=== PATIENT | male | born 1965 | race African-American/Black ===

== ENCOUNTER 2019-12-14 07:16 | Day surgery (SDC) | payer OTHER ==
[2019-12-14] MEDS ORDERED: TBO-FILGRASTIM 480 MCG/0.8 ML DISP.SYRIN SQ ONE (10:00)
[2019-12-14 10:20] LABS: BASO % 0.1 % (0-2.0); EOS % 0.6 % (0-4.5); HEMATOCRIT 28.3 % (35.4-49); HEMOGLOBIN 9.6 GM/dL (11.7-16.9); LYMPH % 8.8 % (8-40); MCH 31.9 pg (25.7-33.7); MCHC 33.9 g/dl (32.0-35.9); MEAN CELL VOLUME 93.9 fl (80-96); MEAN PLT VOLUME 8.1 fl (7.5-11.1); MONO % 36.8 % (3.8-10.2); NEUT % 53.7 % (42.8-82.8); PLATELET COUNT 134 K/MM3 (134-434); RBC 3.02 M/mm3 (4.00-5.60); RDW 13.7 % (11.9-15.9); WHITE BLOOD COUNT 2.4 K/mm3 (4.0-10.0)
[2019-12-14 12:26] LABS: ANISOCYTOSIS 1+; MACROCYTOSIS 0
[2019-12-14 12:48] LABS: PLATELET ESTIMATE ADEQUATE
[2019-12-14 13:46] VITALS: BP 105/76; PULSE 96; TEMP 98.4
== END 2019-12-14 11:00 | disposition home or self-care (01) ==
LOC: JONCCHEMO 07:16
PROVIDERS: ATTEND Internal Medicine Hematology & Oncology
PROC: 3E013GC Introduction of Other Therapeutic Substance into Subcutaneous Tissue, Percutaneous Approach (ICD-10-PCS; principal; 2019-12-14)
DX: C76.0 Malignant neoplasm of head, face and neck (principal); Z85.46 Personal history of malignant neoplasm of prostate; Z72.0 Tobacco use
CPT/HCPCS: 36415; 85025; 96372; J1447

== ENCOUNTER 2019-12-16 06:06 | Day surgery (SDC) | payer OTHER ==
[2019-12-16] MEDS ORDERED: SODIUM CHLORIDE 1,000 ML IV ONE (10:00)
[2019-12-16 13:32] LABS: BASO % 0.2 % (0-2.0); EOS % 0.1 % (0-4.5); HEMATOCRIT 26.4 % (35.4-49); MCH 32.2 pg (25.7-33.7); MEAN CELL VOLUME 94.9 fl (80-96); MEAN PLT VOLUME 8.6 fl (7.5-11.1); NEUT % 85.7 % (42.8-82.8); PLATELET COUNT 162 K/MM3 (134-434); RBC 2.78 M/mm3 (4.00-5.60); RDW 13.8 % (11.9-15.9); WHITE BLOOD COUNT 11.4 K/mm3 (4.0-10.0)
[2019-12-16 14:09] LABS: ALBUMIN 3.4 g/dl (3.4-5.0); BILIRUBIN,TOTAL 0.3 mg/dL (0.2-1); BLOOD UREA NITROGEN 9.7 mg/dL (7-18); CALCIUM 8.8 mg/dL (8.5-10.1); CREATININE 1.4 mg/dL (0.55-1.3); IRON SERUM 178 ug/dL (50-175); MAGNESIUM 1.9 mg/dL (1.8-2.4); POTASSIUM 4.6 mmol/L (3.5-5.1); TOT PROT 6.5 g/dl (6.4-8.2); TOTAL IRON BINDING CAPACITY 216 ug/dL (250-450)
[2019-12-16 15:10] LABS: ANISOCYTOSIS 1+; MACROCYTOSIS 0; OVALOCYTE 1+; PLATELET ESTIMATE NORMAL
[2019-12-16 16:47] VITALS: BP 138/88; PULSE 65
== END 2019-12-16 16:47 | disposition home or self-care (01) ==
LOC: JONCCHEMO 06:06 → JONCNONCHE 06:06
PROVIDERS: ATTEND Internal Medicine Hematology & Oncology
PROC: 3E0337Z Introduction of Electrolytic and Water Balance Substance into Peripheral Vein, Percutaneous Approach (ICD-10-PCS; principal; 2019-12-16)
DX: C76.0 Malignant neoplasm of head, face and neck (principal); Z85.46 Personal history of malignant neoplasm of prostate; Z72.0 Tobacco use; Z76.89 Persons encountering health services in other specified circumstances
CPT/HCPCS: 36415; 80053; 82728; 83540; 83550; 83735; 85025; 96360; 96361